=== PATIENT | male | born 1950 | race Caucasian/White ===

== ENCOUNTER 2018-04-25 15:33 | Emergency (ER) | payer OTHER ==
[~2018-04-25] VITALS: Ht 167.6 cm; Wt 94.3 kg
[~2018-04-25 15:33] MED LIST: ASP325 PO; DICLOFENAC 1% TOP; FLA500 PO; HYDROCHLOROTHIA25 MG PO; IRON325 M3 PO; LAC PO; PLA75 PO; PRILOSEC40 MG PO; ROBAXIN-750750 MG PO; TRAMADOL HCL50 MG PO; ZOLOFT50 MG PO
[2018-04-25 16:18] LABS: BASOPHIL % 0.5 % (0-2); PLATELET COUNT 256 x10^3mcL (130-400); RED CELL DISTRIBUTION WIDTH 12.6 % (11.5-14.5)
[2018-04-25 16:38] LABS: CALCIUM 7.9 mg/dL (8.5-10.1); CARBON DIOXIDE 27.6 mmol/L (21-32); CHLORIDE SERUM 98 mmol/L (98-107); GFR1 > 60 mL/min; GLUCOSE SERUM 261 mg/dL (74-106); POTASSIUM SERUM 3.4 mmol/L (3.5-5.1); SODIUM SERUM 133 mmol/L (136-145)
[2018-04-25 16:54] LABS: ALKALINE PHOSPHATASE 51 U/L (46-116); ALT/SGPT 48 U/L (16-63); AST/SGOT 44 U/L (15-37); BILIRUBIN TOTAL 1.3 mg/dL (0.20-1.00); LIPASE 137 IU/L (73-393); TOTAL PROTEIN, SERUM 6.4 g/dL (6.4-8.2)
[2018-04-25 16:55] LABS: ALBUMIN 3.3 g/dL (3.4-5.0)
[2018-04-25 17:51] VITALS: BP 145/87
== END 2018-04-25 17:06 | disposition home or self-care (01) ==
LOC: ED 15:33
PROVIDERS: Emergency Medicine
DX: E86.0 Dehydration (principal); E87.6 Hypokalemia; R10.84 Generalized abdominal pain; I10 Essential (primary) hypertension; E11.9 Type 2 diabetes mellitus without complications; F32.9 Major depressive disorder, single episode, unspecified; Z98.890 Other specified postprocedural states
CPT/HCPCS: J1885; J2405; J7030

== ENCOUNTER 2018-05-28 20:18 | Inpatient (IN) | payer OTHER ==
[~2018-05-28] VITALS: Ht 167.6 cm; Wt 89.4 kg
[2018-05-28 21:22] LABS: BASOPHIL % 0.7 % (0-2); PLATELET COUNT 248 x10^3mcL (130-400); RED CELL DISTRIBUTION WIDTH 12.8 % (11.5-14.5)
[2018-05-28 21:29] LABS: CALCIUM 8.4 mg/dL (8.5-10.1); CARBON DIOXIDE 28.2 mmol/L (21-32); CHLORIDE SERUM 99 mmol/L (98-107); CREATININE SERUM 0.9 mg/dL (0.7-1.3); GFR1 > 60 mL/min; GLUCOSE SERUM 131 mg/dL (74-106); POTASSIUM SERUM 3.7 mmol/L (3.5-5.1); SODIUM SERUM 139 mmol/L (136-145)
[2018-05-28 21:33] LABS: ALBUMIN 3.9 g/dL (3.4-5.0); ALKALINE PHOSPHATASE 50 U/L (46-116); ALT/SGPT 55 U/L (16-63); AST/SGOT 60 U/L (15-37); BILIRUBIN TOTAL 2.06 mg/dL (0.20-1.00); LIPASE 116 IU/L (73-393); TOTAL PROTEIN, SERUM 7.2 g/dL (6.4-8.2)
[2018-05-28 23:30] LABS: microscopic required? NO
[2018-05-28 23:39] LABS: UA SPECIFIC GRAVITY <=1.005 (1.005-1.035); urine erythrocyte NEGATIVE (NEGATIVE)
[2018-05-28 23:47] LABS: AMPHETAMINE QUAL UR NONE DETECTED (See below)
[2018-05-29 00:05] VITALS: BP 149/80
[2018-05-29 00:09] VITALS: Ht 167.6 cm; Wt 89.4 kg
[2018-05-29] MEDS ORDERED: OMEPRAZOLE40 M1 PO (00:34)
[2018-05-29] MEDS ORDERED: LIPI20 PO (00:36)
[2018-05-29] MEDS ORDERED: LISINOPRIL10 MG PO (00:40)
[2018-05-29] MEDS ORDERED: METFORMIN HCL500 MG PO (00:40)
[2018-05-29] MEDS ORDERED: ASPIR 8181 MG PO (00:41)
[2018-05-29 02:14] LABS: MAGNESIUM 1.2 mg/dL (1.8-2.4); PHOSPHOROUS 4.3 mg/dL (2.5-4.9)
[2018-05-29 02:16] LABS: CHOLESTEROL/HDL RATIO 3.8
[2018-05-29 05:52] VITALS: BP 147/72
[2018-05-29 06:18] LABS: BASOPHIL % 0.7 % (0-2); PLATELET COUNT 228 x10^3mcL (130-400); RED CELL DISTRIBUTION WIDTH 12.5 % (11.5-14.5)
[2018-05-29 06:51] LABS: ALBUMIN 3.5 g/dL (3.4-5.0); ALKALINE PHOSPHATASE 44 U/L (46-116); ALT/SGPT 57 U/L (16-63); AST/SGOT 56 U/L (15-37); BILIRUBIN DIRECT 0.38 mg/dL (0.0-0.2); BILIRUBIN TOTAL 1.93 mg/dL (0.20-1.00); CALCIUM 8.2 mg/dL (8.5-10.1); CARBON DIOXIDE 30.4 mmol/L (21-32); CHLORIDE SERUM 103 mmol/L (98-107); CREATININE SERUM 0.8 mg/dL (0.7-1.3); GFR1 > 60 mL/min; GLUCOSE SERUM 130 mg/dL (74-106); MAGNESIUM 1.7 mg/dL (1.8-2.4); PHOSPHOROUS 4.5 mg/dL (2.5-4.9); POTASSIUM SERUM 3.2 mmol/L (3.5-5.1); SODIUM SERUM 142 mmol/L (136-145); TOTAL PROTEIN, SERUM 6.4 g/dL (6.4-8.2)
[2018-05-29 09:00] VITALS: BP 141/80
[2018-05-29 13:35] VITALS: BP 141/75
[2018-05-29 16:57] VITALS: BP 139/74
[2018-05-29 21:26] VITALS: BP 146/73
[2018-05-30 06:00] VITALS: BP 133/69
[2018-05-30 06:49] LABS: CALCIUM 8.2 mg/dL (8.5-10.1); CARBON DIOXIDE 29.1 mmol/L (21-32); CHLORIDE SERUM 103 mmol/L (98-107); CREATININE SERUM 0.7 mg/dL (0.7-1.3); GFR1 > 60 mL/min; GLUCOSE SERUM 122 mg/dL (74-106); MAGNESIUM 1.5 mg/dL (1.8-2.4); SODIUM SERUM 141 mmol/L (136-145)
[2018-05-30 08:04] LABS: BASOPHIL % 0.5 % (0-2); PLATELET COUNT 238 x10^3mcL (130-400); RED CELL DISTRIBUTION WIDTH 12.6 % (11.5-14.5)
[2018-05-30 09:43] VITALS: BP 137/74
[2018-05-30] MEDS ORDERED: IMO2 PO (13:10)
[2018-05-30 15:50] VITALS: BP 154/75
== END 2018-05-30 17:00 | disposition home or self-care (01) | DRG 392 ==
LOC: ED 20:18 → MU 22:49
PROVIDERS: Emergency Medicine; Family Medicine; General Practice
DX: A08.4 Viral intestinal infection, unspecified (principal); E11.65 Type 2 diabetes mellitus with hyperglycemia; E83.42 Hypomagnesemia; I10 Essential (primary) hypertension; R74.0 Nonspecific elevation of levels of transaminase and lactic acid dehydrogenase [LDH]; F32.9 Major depressive disorder, single episode, unspecified; E78.5 Hyperlipidemia, unspecified; Z68.31 Body mass index [BMI] 31.0-31.9, adult; Z79.84 Long term (current) use of oral hypoglycemic drugs; Z79.82 Long term (current) use of aspirin
CPT/HCPCS: 82962; J2543; J3475; J3480; J7030; Q0092

== ENCOUNTER 2018-06-27 15:36 | Emergency (ER) | payer OTHER, MEDICAID ==
[~2018-06-27] VITALS: Ht 165.1 cm; Wt 83.9 kg
[~2018-06-27 15:36] MED LIST changes: +ASPIR 8181 MG PO; +IMO2 PO; +LIPI20 PO; +LISINOPRIL10 MG PO; +METFORMIN HCL500 MG PO; +OMEPRAZOLE40 M1 PO
[2018-06-27 15:47] VITALS: Ht 165.1 cm; Wt 83.9 kg
[2018-06-27 17:36] LABS: BASOPHIL % 0.8 % (0-2); PLATELET COUNT 255 x10^3mcL (130-400); RED CELL DISTRIBUTION WIDTH 12.5 % (11.5-14.5)
[2018-06-27 17:43] LABS: CALCIUM 8.8 mg/dL (8.5-10.1); CARBON DIOXIDE 33.1 mmol/L (21-32); CHLORIDE SERUM 90 mmol/L (98-107); CREATININE SERUM 1.2 mg/dL (0.7-1.3); GFR1 > 60 mL/min; GLUCOSE SERUM 105 mg/dL (74-106); POTASSIUM SERUM 3.2 mmol/L (3.5-5.1); SODIUM SERUM 129 mmol/L (136-145)
[2018-06-27 17:45] LABS: ALBUMIN 3.9 g/dL (3.4-5.0); LIPASE 204 IU/L (73-393)
[2018-06-27 18:02] LABS: ALKALINE PHOSPHATASE 53 U/L (46-116); ALT/SGPT 53 U/L (16-63); AST/SGOT 68 U/L (15-37); BILIRUBIN TOTAL 2.18 mg/dL (0.20-1.00); TOTAL PROTEIN, SERUM 7.2 g/dL (6.4-8.2)
[2018-06-27 20:17] VITALS: BP 118/74
== END 2018-06-27 20:17 | disposition home or self-care (01) ==
LOC: ED 15:36
PROVIDERS: Emergency Medicine
DX: R10.13 Epigastric pain (principal); R11.2 Nausea with vomiting, unspecified; R19.7 Diarrhea, unspecified; I10 Essential (primary) hypertension; E11.9 Type 2 diabetes mellitus without complications; F32.9 Major depressive disorder, single episode, unspecified; Z98.890 Other specified postprocedural states
CPT/HCPCS: J2405; J3490; J7030; Q9967

== ENCOUNTER 2018-08-13 14:15 | Inpatient (IN) | payer OTHER, MEDICAID ==
[~2018-08-13] VITALS: Ht 167.6 cm; Wt 75.3 kg
[2018-08-13 15:27] LABS: PLATELET COUNT 245 x10^3mcL (130-400); RED CELL DISTRIBUTION WIDTH 12.9 % (11.5-14.5)
[2018-08-13 15:32] LABS: CALCIUM 8.6 mg/dL (8.5-10.1); CARBON DIOXIDE 28.6 mmol/L (21-32); CHLORIDE SERUM 92 mmol/L (98-107); CREATININE SERUM 1.1 mg/dL (0.7-1.3); GFR1 > 60 mL/min; GLUCOSE SERUM 113 mg/dL (74-106); POTASSIUM SERUM 3.2 mmol/L (3.5-5.1); SODIUM SERUM 129 mmol/L (136-145)
[2018-08-13 15:36] LABS: ALBUMIN 3.6 g/dL (3.4-5.0); ALKALINE PHOSPHATASE 49 U/L (46-116); ALT/SGPT 29 U/L (16-63); AMYLASE 49 U/L (25-115); AST/SGOT 33 U/L (15-37); BILIRUBIN TOTAL 1.7 mg/dL (0.20-1.00); LIPASE 142 IU/L (73-393); TOTAL PROTEIN, SERUM 7.1 g/dL (6.4-8.2)
[2018-08-13 15:37] LABS: CHOLESTEROL 76 mg/dL (<200); HDL CHOLESTEROL 29 mg/dL (40-60)
[2018-08-13 16:30] LABS: MAGNESIUM 1.4 mg/dL (1.8-2.4); PHOSPHOROUS 2.7 mg/dL (2.5-4.9)
[2018-08-13 16:41] LABS: CHOLESTEROL/HDL RATIO 2.5
[2018-08-13 16:58] VITALS: BP 134/72
[2018-08-13 21:01] VITALS: BP 120/70
[2018-08-13 22:08] LABS: CALCIUM 8.6 mg/dL (8.5-10.1); CARBON DIOXIDE 29.3 mmol/L (21-32); CHLORIDE SERUM 94 mmol/L (98-107); CREATININE SERUM 0.9 mg/dL (0.7-1.3); GFR1 > 60 mL/min; GLUCOSE SERUM 104 mg/dL (74-106); POTASSIUM SERUM 3.5 mmol/L (3.5-5.1); SODIUM SERUM 131 mmol/L (136-145)
[2018-08-14 05:58] VITALS: BP 127/72
[2018-08-14 07:01] LABS: BASOPHIL % 0.8 % (0-2); PLATELET COUNT 205 x10^3mcL (130-400); RED CELL DISTRIBUTION WIDTH 13.1 % (11.5-14.5)
[2018-08-14 07:13] LABS: CALCIUM 8.3 mg/dL (8.5-10.1); CARBON DIOXIDE 27.3 mmol/L (21-32); CHLORIDE SERUM 97 mmol/L (98-107); CREATININE SERUM 0.8 mg/dL (0.7-1.3); GFR1 > 60 mL/min; GLUCOSE SERUM 86 mg/dL (74-106); MAGNESIUM 1.3 mg/dL (1.8-2.4); PHOSPHOROUS 3.9 mg/dL (2.5-4.9); POTASSIUM SERUM 3.8 mmol/L (3.5-5.1); SODIUM SERUM 132 mmol/L (136-145)
[2018-08-14 08:55] VITALS: BP 139/76
[2018-08-14 13:30] VITALS: BP 134/69
[2018-08-14 16:50] VITALS: BP 122/68
[2018-08-14 21:43] VITALS: BP 158/74
[2018-08-15 00:54] VITALS: Ht 167.6 cm; Wt 75.3 kg
[2018-08-15 05:57] VITALS: BP 145/72
[2018-08-15 06:07] LABS: BASOPHIL % 0.7 % (0-2); PLATELET COUNT 219 x10^3mcL (130-400); RED CELL DISTRIBUTION WIDTH 12.5 % (11.5-14.5)
[2018-08-15 06:35] LABS: CARBON DIOXIDE 28.4 mmol/L (21-32); CHLORIDE SERUM 95 mmol/L (98-107); CREATININE SERUM 0.8 mg/dL (0.7-1.3); GFR1 > 60 mL/min; GLUCOSE SERUM 85 mg/dL (74-106); MAGNESIUM 1.4 mg/dL (1.8-2.4); PHOSPHOROUS 3.7 mg/dL (2.5-4.9); POTASSIUM SERUM 4.1 mmol/L (3.5-5.1); SODIUM SERUM 131 mmol/L (136-145)
[2018-08-15 09:23] LABS: microscopic required? NO
[2018-08-15 09:33] LABS: UA SPECIFIC GRAVITY 1.025 (1.005-1.035); urine erythrocyte NEGATIVE (NEGATIVE)
[2018-08-15 09:47] VITALS: BP 144/78
[2018-08-15 09:49] LABS: AMPHETAMINE QUAL UR NONE DETECTED (See below)
[2018-08-15 14:20] VITALS: BP 106/69
[2018-08-15 16:14] VITALS: BP 143/74
[2018-08-15 20:40] VITALS: BP 140/72
[2018-08-16 05:01] VITALS: BP 118/70
[2018-08-16 09:40] VITALS: BP 132/75
[2018-08-16 13:20] VITALS: BP 110/67
== END 2018-08-16 18:13 | disposition home or self-care (01) | DRG 206 ==
LOC: ED 14:15 → DU 15:37
PROVIDERS: Emergency Medicine; Family Medicine; Internal Medicine Gastroenterology; ADMIT Internal Medicine
PROC: 0DJD8ZZ Inspection of Lower Intestinal Tract, Via Natural or Artificial Opening Endoscopic (ICD-10-PCS; principal; 2018-08-15 09:00)
DX: M94.0 Chondrocostal junction syndrome [Tietze] (principal); E87.1 Hypo-osmolality and hyponatremia; K21.9 Gastro-esophageal reflux disease without esophagitis; R19.7 Diarrhea, unspecified; R63.4 Abnormal weight loss; E87.6 Hypokalemia; E11.9 Type 2 diabetes mellitus without complications; I10 Essential (primary) hypertension; E78.5 Hyperlipidemia, unspecified; Z68.26 Body mass index [BMI] 26.0-26.9, adult
CPT/HCPCS: 43235; 45378; 82962; 83880; A9500; J1200; J1610; J2250; J2310; J2765; J2785; J3010; J3490; J7030; Q0092; Q9966; Q9967